=== PATIENT | female | born 1995 | race Caucasian/White ===

== ENCOUNTER 2025-07-09 18:47 | Emergency (ER) | payer SELFPAY ==
[2025-07-09 19:22] VITALS: BP 157/109; PULSE 137; RESP 16; TEMP 37.2; O2SAT 98; BMI 32.1
--- NOTE | 2025-07-09 19:26 | ED.GENADULT ---
HPI - General Adult General Chief complaint: Skin/Abscess/Foreign Body Stated complaint: hives all over body since fri Time Seen by Provider: 07/09/25 19:26 Source: patient, RN notes reviewed and old records reviewed Mode of arrival: ambulatory Limitations: no limitations History of Present Illness ED Provider: Erin AVALOS narrative: 29 year old female presents for evaluation of a rash. The patient reports that she had a mushroom coffee on The following day she noticed hives to her arms, chest and legs. Your symptoms seem worse on her bilateral thighs but right was greater than left The rash was itchy and raised. She took Benadryl with some relief of the itching but the rash was still present. The rash has improved on her arms over last 2 days pain Denies any fevers or chills She denies any previous known allergies She also reports she fractured a tooth a few months ago in his left upper incisor area. She has had increasing pain in the area over the last few weeks. She thinks that she had had a dental infection Related Data Previous Rx's ?Medication ?Instructions ?Recorded amoxicillin 875 mg-potassium 1 tab PO Q12H #14 tabs 07/09/25 clavulanate 125 mg tablet prednisone 20 mg tablet 40 mg (2 x 20 mg) PO DAILY #10 tabs 07/09/25 Allergies Allergy/AdvReac Type Severity Reaction Status Date / Time No Known Allergies Allergy Verified 07/09/25 19:26 Review of Systems Constitutional: Constitutional: Denies body ache(s), Denies chills, Denies fever(s) and Denies headache(s) Eyes: Eyes: Denies blind spots ENT: Denies headache(s), Reports mouth pain and Denies throat swelling Cardiovascular: Cardiovascular: Denies chest pain and Denies dyspnea on exertion Respiratory: Respiratory: Denies cough and Denies dyspnea on exertion Gastrointestinal: Gastrointestinal: Denies nausea and Denies vomiting Integumentary/Breasts: Skin/Breast: Reports pruritus, Reports erythema, Reports rash, Reports skin swelling and Denies wounds Neurologic: Denies headache(s) Psychiatric: Psychiatric: Denies anxiety Allergic/Immunologic: Allergic/Immunologic: Denies throat swelling PMFSH Social History Social History Advance Directives: No Advance Directives Information Provided: Yes Do you have a plan to hurt others: No Plan Physical Exam ED Vital Signs: Vital Signs - 24 hr 07/09/25 19:22 Temperature 99 F Pulse Rate 137 H Respiratory Rate 16 Blood Pressure 157/109 H Pulse Oximetry 98 Oxygen Delivery Method Room Air BMI result Body Mass Index 32.1 Const General: healthy appearing, comfortable, no acute distress, alert and awake Nutritional Appearance: well nourished Orientation/consciousness: patient oriented x3 HENMT Head: Yes normocephalic and Yes atraumatic Throat: Yes posterior oropharynx normal Eyes Eyelids: Yes eyelids normal Conjunctivae: conjunctivae normal Sclerae: sclerae normal Corneas: corneas normal Pupils: Equal, round and reactive pupils present EOM: EOMs intact bilaterally Neck Neck: Yes full ROM Resp Effort & Inspection: normal respiratory effort, able to speak in complete sentences and not labored Cardio Rate: regular rate Rhythm: regular rhythm Skin Other: There was mild urticaria to the bilateral upper extremities. No noted to the face, neck or back. The patient has slightly more extensive urticaria to the right thigh which does not extend below the knee. There is a similar but slightly less significant area of urticaria to the left thigh. No lower extremity edema or calf tenderness General skin exam: elasticity normal Neuro General: patient oriented x3 Cranial nerves: Yes Equal, round and reactive pupils present and Yes Bilaterally intact EOM present Cognition (Neuro): normal cognition Extrem Other: Moving all extremities well without any obvious deformities Medical Decision Making Medical Decision Making MDM Narrative: [age] old female presents for evaluation of 2 separate complaints. She is primarily here for a rash that she describes as urticaria and does appear to be consistent with a urticaria. This is improving on the upper extremities but not significantly changed in the lower extremities per her report over the last few days. She has been using Benadryl, we will give her a short course of prednisone. There was no evidence of anaphylaxis or airway compromise. She does appear to have a early dental infection due to dental trauma of the left upper premolar. We will treat with Augmentin Differential Diagnosis Differential Diagnoses: The differential diagnosis associated with the presentation includes Cellulitis Urticaria Allergic reaction Dermatitis Atypical facial pain Discharge Plan Discharge Clinical Impression: Urticaria Patient Disposition: Home, Self-Care Instructions: Urticaria (ED), Acute Rash (ED) Additional Instructions: Take an neov-axd-hmdfvyg allergy medication such as Zyrtec or Claritin. Take prednisone 40 mg daily for the next 5 days. You may take Augmentin twice daily for 1 week for the dental infection Follow up with your primary doctor. You may be referred for allergy testing to determine if it was the mushroom Prescriptions: New prednisone 20 mg tablet 40 mg PO DAILY Qty: 10 0RF amoxicillin-pot clavulanate 875-125 mg tablet 1 tab PO Q12H Qty: 14 0RF Stand Alone Forms: Work/School Release Print Language: Maori
[2025-07-09 19:49] VITALS: BP 157/109; PULSE 137; RESP 16; TEMP 37.2; O2SAT 98
--- OUTSIDE RECORDS SUMMARY | 2025-07-09 21:08 | XMS_ITS | Clinical Summary ---
Author Organization [facility] Address [address] [address] Phone Care Team Providers Care Tube Puller Name Role Phone Pcp, Unknown Primary Care Provider Unavailabl e Medications No known medications Active Problems No known active problems Social History Tobacco Use Types Packs/Day Years Used Date Smoking Tobacco: Every Day Cigarettes Tobacco Cessation:Ready to Q uit: Not Asked; Counseling Given: Not Answered Education Answer Date Recorded Are you interested in more education? Not on maite e 06/24/2024 Are you concerned about learning? Not on file 06/24/2024 No 06/24/2024 No 06/24/2024 Digital Access Answer Date Recorded No 06/24/2024 No 06/24/2024 Reliable internet access at home? Not on file 06/24/2024 Device with a working camera? Not on file Comments Unknown Sex and Gender Information Value Date Recorded Sex Assigned at Not on file Legal Sex Female 9:47 AM EDT Gender Identity Not on file Sexual Orientation Not on file Last Filed Vital Signs Vital Sign Reading Time Taken Comments Blood Pressure 146/87 06/24/2024 11:18 AM EDT Pulse 114 06/24/2024 11:18 AM EDT Temperature 36.8 C (98.2 F) 06/24/2024 11:18 AM EDT Respiratory Rate - - Oxygen Saturation 100% 06/24/2024 11:18 AM EDT Inhaled Oxygen Concentration - - Weight 65.8 kg (145 lb) 06/24/2024 11:18 AM EDT Height 152.4 cm (5') 06/24/2024 11:18 AM EDT Body Mass Index 28.32 06/24/2024 11:18 AM EDT Plan of Treatment Health Maintenance Due Date Last Done Comments Adult Td,Tdap Booster 1994 DEPRESSION SCREENING 2006 SMOKING Hx and SMOKELESS TOB ACCO SCREENING 2007 HEPATITIS C SCREENING 2012 HIV ONE-TIME SCREENING (18-6 5 YEARS) 2012 PNEUMOCOCCAL VACCINES (0-49 years) (1 of 2 - PCV) 2013 PAP SMEAR 2015 INFLUENZA VACCINE (#1) 2025 COVID-19 VACCINE ( - 2024-2 6 season) 2025 HEPATITIS A VACCINES Aged Out No long er eligible based on patient's age to complete this topic HIB VACCINES Aged Out No longer eligi ble based on patient's age to complete this topic MENINGOCOCCAL VACCINES (ACWY) Aged Out No longer eligible based on patient's age to complete this topic MENINGOCOCCAL VACCINES (B) Aged Out N o longer eligible based on patient's age to complete this topic Medical Devices Not on file Care Teams Tube Puller Relationship Specialty Start Date End Date Pcp, Unknown PCP - General 06/24/24 Additional Source Comments The information contained in this document represents components of the legal health record. It is not the complete legal health record.[facility]
== END 2025-07-09 19:49 | disposition home or self-care (01) ==
LOC: HO.ED 19:31
PROVIDERS: Emergency Provider Student in an Organized Health Care Education/Training Program
DX: L50.9 Urticaria, unspecified (principal); K08.89 Other specified disorders of teeth and supporting structures
CPT/HCPCS: 99282; 99283